=== PATIENT | male | born 1980 | race Caucasian/White ===

== ENCOUNTER 2018-11-11 10:43 | Observation (INO) | payer OTHER ==
[2018-11-11] MEDS ORDERED: LIDOCAINE 2% W/EPI 1:200,000 MPF 20 ML VIAL IM ONE (12:29)
[2018-11-11] MEDS ORDERED: LIDOCAINE 1% MPF 5 ML VIAL ONE (12:29)
[2018-11-11] MEDS ORDERED: CLINDAMYCIN 600MG/D5W 600 MG/50 ML BAG IV ONE (12:50)
--- NOTE | 2018-11-11 12:52 | ER ---
Nurse's Notes [facility] Name: Robson Smith Age: 38 yrs Sex: Male : 1980 Arrival Date: 11/11/2018 Time: 10:45 Bed 16 Private MD: Deion Monge Diagnosis: Cutaneous abscess of abdominal wall;Cellulitis of abdominal wall Presentation: 11/11 10:59 Presenting complaint: Patient states: "I went to urgent care and they diagnosed me with aa5 an abscess of my abdomen and gave me Bactrim on Sunday". Pt reports fever. Transition of care: patient was not received from another setting of care. Onset of symptoms was October 2018. Risk Assessment: Do you want to hurt yourself or someone else? Patient reports no desire to harm self or others. Care prior to arrival: None. 10:59 Method Of Arrival: Ambulatory aa5 10:59 Acuity: MONA 3 aa5 11:45 Initial Sepsis Screen: Does the patient meet any 2 criteria? No. Patient's initial rb1 sepsis screen is negative. Does the patient have a suspected source of infection? Yes:. Historical: - Allergies: 11:01 Levaquin; aa5 - Home Meds: 11:35 Bactrim DS Oral [Active]; rb1 - PMHx: 11:35 Autoimmune disorder; rb1 - PSHx: 11:01 Cyst removed; Cholecystectomy; aa5 11:01 Prostate sx; aa5 - Immunization history:: Flu vaccine is not up to date. - Social history:: Smoking status: Patient/guardian denies using tobacco. - Ebola Screening: : No symptoms or risks identified at this time. Screenin:35 Abuse screen: Denies threats or abuse. Nutritional screening: No deficits noted. rb1 Tuberculosis screening: No symptoms or risk factors identified. Fall Risk None identified. Assessment: 11:35 General: Appears in no apparent distress. comfortable, Behavior is calm, cooperative, rb1 Reports fever for. Pain: Complains of pain in suprapubic area Pain currently is 3 out of 10 on a pain scale. Pain began . Neuro: Level of Consciousness is awake, alert, obeys commands, Oriented to person, place, time, situation. Cardiovascular: Capillary refill < 3 seconds is brisk in bilateral fingers. Respiratory: Airway is patent Respiratory effort is even, unlabored, Respiratory pattern is regular, symmetrical. GI: No signs and/or symptoms were reported involving the gastrointestinal system. : No signs and/or symptoms were reported regarding the genitourinary system. Derm: Skin is red, purple. Musculoskeletal: Swelling present in suprapubic area. 12:35 Reassessment: Patient appears in no apparent distress at this time. Patient and/or rb1 family updated on plan of care and expected duration. Pain level reassessed. Patient is alert, oriented x 3, equal unlabored respirations, skin warm/dry/pink. 13:30 Reassessment: Patient appears in no apparent distress at this time. No changes from ss previously documented assessment. at bedside. 14:30 Reassessment: Patient appears in no apparent distress at this time. Patient and/or ss family updated on plan of care and expected duration. Pain level reassessed. Patient is alert, oriented x 3, equal unlabored respirations, skin warm/dry/pink. at bedside. Pt is watching TV. 15:05 Reassessment: Called to give report but was left on hold. rb1 15:30 Reassessment: Patient appears in no apparent distress at this time. Patient and/or rb1 family updated on plan of care and expected duration. Pain level reassessed. 16:00 Reassessment: Called to give report and was left on hold. rb1 16:05 Reassessment: Called to give report and was told by Gavin that the nurse was doing her rb1 admission on another pt. she just received, so she couldn't take report at this time. She would have Jackie call med back. 16:30 Reassessment: Patient appears in no apparent distress at this time. Patient and/or rb1 family updated on plan of care and expected duration. Pain level reassessed. Patient is alert, oriented x 3, equal unlabored respirations, skin warm/dry/pink. at bedside. 17:00 Reassessment: Patient appears in no apparent distress at this time. Patient and/or ss family updated on plan of care and expected duration. Pain level reassessed. Patient is alert, oriented x 3, equal unlabored respirations, skin warm/dry/pink. 17:00 Reassessment: Gave report to KATARZYNA Mejia. Information from the [facility] was given. All rb1 questions asked and answered. Vital Signs: 11:01 BP 135 / 90; Pulse 108; Resp 18 S; Temp 99.2(O); Pulse Ox 94% on R/A; Weight 95.25 kg aa5 (R); Height 5 ft. 11 in. (180.34 cm) (R); Pain 4/10; 14:49 BP 118 / 91; Pulse 103; Resp 17; Pulse Ox 97% on R/A; Pain 5/10; rb1 15:49 BP 129 / 88; Pulse 100; Resp 17; Pulse Ox 96% on R/A; rb1 17:00 BP 134 / 75; Pulse 104; Resp 17; Pulse Ox 95% ; Pain 8/10; ss 11:01 Body Mass Index 29.29 (95.25 kg, 180.34 cm) aa5 ED Course: 10:45 Patient arrived in ED. sb2 10:45 Deion Monge MD is Private Physician. sb2 10:59 Arm band placed on. aa5 11:00 Triage completed. aa5 11:25 Darrell Sloan PA is PHCP. jr8 11:25 Pasha Vivas MD is Attending Physician. jr8 11:35 Patient has correct armband on for positive identification. Placed in gown. Bed in low rb1 position. Call light in reach. Side rails up X 1. Pulse ox on. NIBP on. 11:44 Nasra Cline, RACHELE is Primary Nurse. rb1 12:50 Juliette Randhawa MD is Hospitalizing Provider. jr8 12:50 Inserted saline lock: 22 gauge in right antecubital area, using aseptic technique. rb1 Blood collected. 13:43 First set of blood cultures drawn by me, by venipuncture 23G to left hand. dh3 14:06 Second set of blood cultures drawn by me, by venipuncture 23G to right hand. dh3 17:13 No provider procedures requiring assistance completed. Patient admitted, IV remains in rb1 place. Administered Medications: 14:10 Drug: Clindamycin 600 mg Route: IVPB; Infused Over: 30 mins; Site: right antecubital; rb1 14:55 Follow up: IV Status: Completed infusion rb1 14:30 Drug: fentaNYL (PF) 50 mcg Route: IVP; Site: right antecubital; rb1 14:45 Follow up: Response: No adverse reaction; Pain is decreased rb1 14:30 Drug: Zofran 4 mg Route: IVP; Site: right antecubital; rb1 14:45 Follow up: Response: No adverse reaction; Nausea is decreased rb1 14:30 Drug: NS 0.9% 1000 ml Route: IV; Rate: 1000 ml; Site: right antecubital; rb1 15:40 Follow up: IV Status: Completed infusion rb1 15:40 Drug: vancoMYCIN 1 grams Route: IVPB; Infused Over: 2 hrs; Site: right antecubital; rb1 17:00 Drug: fentaNYL (PF) 50 mcg Route: IVP; Site: right antecubital; ss 17:13 Follow up: Response: No adverse reaction; Pain is decreased rb1 Outcome: 12:52 Decision to Hospitalize by Provider. jr8 17:13 Patient left the ED. 17:13 Admitted to Tele accompanied by tech, family with patient, via wheelchair, room 424, rb1 with chart, Report called to KATARZYNA Mejia 17:13 Condition: stable 17:13 Instructed on the need for admit. Signatures: Yeni Farnsworth RN RN aa5 Silvina Madden RN RN Darrell Sloan PA PA jr8 Nasra Cline, RN RN rb1 Krissy Valentine 3 Mallory Puentes sb2 Corrections: (The following items were deleted from the chart) 12:04 11:01 PMHx: None; aa5 rb1
--- NOTE | 2018-11-11 12:53 | EDPHYS ---
Physician Documentation [facility] Name: Robson Smith Age: 38 yrs Sex: Male : 1980 Arrival Date: 11/11/2018 Time: 10:45 Bed 16 Private MD: Deion Monge ED Physician Pasha Vivas HPI: 11/11 12:46 This 38 yrs old Male presents to ER via Ambulatory with complaints of Abscess.jr8 12:46 The patient presents with an abscess of the pelvis. Description: The affected area is jr8 moderate sized, well demarcated, erythematous, raised, streaking, swollen, tense, warm. Onset: The symptoms/episode began/occurred gradually, 4 day(s) ago. Possible cause(s): unknown. Associated signs and symptoms: Pertinent positives: fever. Modifying factors: the symptoms are alleviated by nothing, the symptoms are aggravated by pressure, sitting, squeezing the lesion and expressing the contents, touching. Severity of symptoms: At their worst the symptoms were moderate, in the emergency department the symptoms are unchanged. The patient has not experienced similar symptoms in the past. The patient has not recently seen a physician. Historical: - Allergies: 11:01 Levaquin; aa5 - Home Meds: 11:35 Bactrim DS Oral [Active]; rb1 - PMHx: 11:35 Autoimmune disorder; rb1 - PSHx: 11:01 Cyst removed; Cholecystectomy; aa5 11:01 Prostate sx; aa5 - Immunization history:: Flu vaccine is not up to date. - Social history:: Smoking status: Patient/guardian denies using tobacco. - Ebola Screening: : No symptoms or risks identified at this time. ROS: 12:46 Eyes: Negative for injury, pain, redness, and discharge, ENT: Negative for injury, jr8 pain, and discharge, Neck: Negative for injury, pain, and swelling, Cardiovascular: Negative for chest pain, palpitations, and edema, Respiratory: Negative for shortness of breath, cough, wheezing, and pleuritic chest pain, Abdomen/GI: Negative for abdominal pain, nausea, vomiting, diarrhea, and constipation, Back: Negative for injury and pain, MS/Extremity: Negative for injury and deformity, Neuro: Negative for headache, weakness, numbness, tingling, and seizure. 12:46 Skin: Positive for abscess. Exam: 12:46 Eyes: Pupils equal round and reactive to light, extra-ocular motions intact. Lids and jr8 lashes normal. Conjunctiva and sclera are non-icteric and not injected. Cornea within normal limits. Periorbital areas with no swelling, redness, or edema. ENT: Nares patent. No nasal discharge, no septal abnormalities noted. Tympanic membranes are normal and external auditory canals are clear. Oropharynx with no redness, swelling, or masses, exudates, or evidence of obstruction, uvula midline. Mucous membranes moist. Neck: Trachea midline, no thyromegaly or masses palpated, and no cervical lymphadenopathy. Supple, full range of motion without nuchal rigidity, or vertebral point tenderness. No Meningismus. Cardiovascular: Regular rate and rhythm with a normal S1 and S2. No gallops, murmurs, or rubs. Normal PMI, no JVD. No pulse deficits. Respiratory: Lungs have equal breath sounds bilaterally, clear to auscultation and percussion. No rales, rhonchi or wheezes noted. No increased work of breathing, no retractions or nasal flaring. Abdomen/GI: Soft, non-tender, with normal bowel sounds. No distension or tympany. No guarding or rebound. No evidence of tenderness throughout. Back: No spinal tenderness. No costovertebral tenderness. Full range of motion. MS/ Extremity: Pulses equal, no cyanosis. Neurovascular intact. Full, normal range of motion. Neuro: Awake and alert, GCS 15, oriented to person, place, time, and situation. Cranial nerves II-XII grossly intact. Motor strength 5/5 in all extremities. Sensory grossly intact. Cerebellar exam normal. Normal gait. 12:46 Skin: abscess, that is moderate sized, approximately 5 cm(s), of the suprapubic area, with induration, with surrounding cellulitis, that is moderate. Vital Signs: 11:01 BP 135 / 90; Pulse 108; Resp 18 S; Temp 99.2(O); Pulse Ox 94% on R/A; Weight 95.25 kg aa5 (R); Height 5 ft. 11 in. (180.34 cm) (R); Pain 4/10; 14:49 BP 118 / 91; Pulse 103; Resp 17; Pulse Ox 97% on R/A; Pain 5/10; rb1 15:49 BP 129 / 88; Pulse 100; Resp 17; Pulse Ox 96% on R/A; rb1 17:00 BP 134 / 75; Pulse 104; Resp 17; Pulse Ox 95% ; Pain 8/10; ss 11:01 Body Mass Index 29.29 (95.25 kg, 180.34 cm) aa5 Procedures: 12:46 I \T\ D: Incision and drainage was performed for an abscess of the suprapubic area jr8 Prepped with Betadine, Anesthetized with ml's 2% Lidocaine with epinephrine. 5 ml's 2% Lidocaine with epinephrine. Incised with #11 blade. Drained moderate amount purulent fluid. bloody fluid. Loculations removed. Cultures obtained. Abscess cavity explored. Packed with iodoform gauze, Dressing: sterile 4x4 gauze, the patient tolerated the procedure well. MDM: 11:25 Patient medically screened. [facility] 12:46 Data reviewed: vital signs, nurses notes, lab test result(s), and as a result, I will [facility] admit patient. Data interpreted: Pulse oximetry: on room air is 95 %. Interpretation: normal. Counseling: I had a detailed discussion with the patient and/or guardian regarding: the historical points, exam findings, and any diagnostic results supporting the discharge/admit diagnosis, lab results, the need for further work-up and treatment in the hospital. 11/11 12:07 Order name: CBC with Diff; Complete Time: 13:24 [facility] 11/11 12:07 Order name: Basic Metabolic Panel; Complete Time: 13:50 [facility] 11/11 12:52 Order name: Blood Culture Adult (2) [facility] 11/11 12:53 Order name: Wound Culture [facility] 11/11 12:07 Order name: IV; Complete Time: 13:47 [facility] 11/11 12:55 Order name: CONS Physician Consult EDMS Administered Medications: 14:10 Drug: Clindamycin 600 mg Route: IVPB; Infused Over: 30 mins; Site: right antecubital; rb1 14:55 Follow up: IV Status: Completed infusion rb1 14:30 Drug: fentaNYL (PF) 50 mcg Route: IVP; Site: right antecubital; rb1 14:45 Follow up: Response: No adverse reaction; Pain is decreased rb1 14:30 Drug: Zofran 4 mg Route: IVP; Site: right antecubital; rb1 14:45 Follow up: Response: No adverse reaction; Nausea is decreased rb1 14:30 Drug: NS 0.9% 1000 ml Route: IV; Rate: 1000 ml; Site: right antecubital; rb1 15:40 Follow up: IV Status: Completed infusion rb1 15:40 Drug: vancoMYCIN 1 grams Route: IVPB; Infused Over: 2 hrs; Site: right antecubital; rb1 17:00 Drug: fentaNYL (PF) 50 mcg Route: IVP; Site: right antecubital; ss 17:13 Follow up: Response: No adverse reaction; Pain is decreased rb1 Disposition: 11/11/18 12:52 Hospitalization ordered by Juliette Randhawa for Inpatient Admission. Preliminary diagnosis are Cutaneous abscess of abdominal wall, Cellulitis of abdominal wall. - Bed requested for Telemetry/MedSurg (Inpatient). - Status is Inpatient Admission. ss - Condition is Stable. - Problem is new. - Symptoms have improved. UTI on Admission? No Addendum: 11/19/2018 11:25 Co-signature as Attending Physician, Pasha Vivas MD I agree with the assessment and c boudreaux plan of care. Signatures: Dispatcher [employer] [facility] Mary Robledo RN Pasha Agudelo MD MD cha Calderon, Audri, RN RN aa5 Silvina Madden RN RN Darrell Sloan PA PA jr8 Nasra Cline, RN RN rb1 Corrections: (The following items were deleted from the chart) 11/11 12:04 11:01 PMHx: None; aa5 rb1 13:32 12:52 Hospitalization Ordered by Juliette Randhawa MD for Inpatient Admission. Preliminary diagnosis is Cutaneous abscess of abdominal wall; Cellulitis of abdominal wall. Bed requested for Telemetry/MedSurg (Inpatient). Status is Inpatient Admission. Condition is Stable. Problem is new. Symptoms have improved. UTI on Admission? No. jr8 17:13 13:32 11/11/2018 12:52 Hospitalization Ordered by Juliette Randhawa MD for Inpatient ss Admission. Preliminary diagnosis is Cutaneous abscess of abdominal wall; Cellulitis of abdominal wall. Bed requested for Telemetry/MedSurg (Inpatient). Status is Inpatient Admission. Condition is Stable. Problem is new. Symptoms have improved. UTI on Admission? No. dw
[2018-11-11 13:06] LABS: Absolute Monocytes 0.8 K/uL (0.1-1.3); Absolute Neutrophil 8.2 K/uL (1.8-8.0); Basophils % 0.8 % (0-1.3); Eosinophils % 1.6 % (0-4.4); Hematocrit 40.3 % (39.6-49.0); Lymphocytes % 17.6 % (15.3-44.8); MPV 7.5 fL (7.6-11.3); Monocytes % 7.3 % (3.3-12.3); RBC Red Blood Cell Count 4.37 M/uL (4.33-5.43)
[2018-11-11 13:28] LABS: Potassium 3.5 mmol/L (3.5-5.1)
[2018-11-11] MEDS ORDERED: NA CHLORIDE 0.9% 1,000 ML ONE (14:37)
[2018-11-11] MEDS ORDERED: FENTANYL CITR 100 MCG/2 ML ONE ×2 (14:37→17:00)
[2018-11-11] MEDS ORDERED: ONDANSETRON 4 MG/2 ML VIAL ONE (14:37)
[2018-11-11] MEDS ORDERED: VANCOMYCIN 1.75 GM in NA CHLORIDE 0.9% 500 ML IVPB ONE (16:00)
--- NOTE | 2018-11-11 16:50 | P.HP ---
Certification for Inpatient Patient admitted to: Observation With expected LOS: <2 Midnights Patient will require the following post-hospital care: None Practitioner: I am a practitioner with admitting privileges, knowledge of patient current condition, hospital course, and medical plan of care. Services: Services provided to patient in accordance with Admission requirements found in Title 42 Section 412.3 of the Code of Federal Regulations Patient History Date of Service: 11/11/18 Reason for admission: Abdominal abscess History of Present Illness: This is a 38-year-old male with no significant past medical history who presented to the ED complaining of having an abdominal pimple that got progressively worse for past 1 week. Patient noted that he had an abdominal pimple that grew about last Sunday or and has gotten progressively worse to the point he was hurting him a lot and thus he decided to come to the ER. Patient stated that 2 days ago he went to the urgent care and was given Bactrim which did not help resolve the issue and thus he came back to the ER today to get a further checked out. Patient also stated that only has been on dapsone for his gum disease and recently finish prednisone for that as well. Patient has no past medical history and has no other complaints to offer at this time. Patient states that no other similar symptoms as happened in the past. In the ER patient had an I and D and was admitted due to the extensive nature of the wound Allergies levofloxacin [From Levaquin] Allergy (Verified 11/11/18 17:42) Shortness of breath Review of Systems 10-point ROS is otherwise unremarkable Physical Examination - Physical Exam General: Alert, In no apparent distress HEENT: Atraumatic, PERRLA, Mucous membr. moist/pink, EOMI, Sclerae nonicteric Neck: Supple, 2+ carotid pulse no bruit, No LAD, Without JVD or thyroid abnormality Respiratory: Clear to auscultation bilaterally, Normal air movement Cardiovascular: Regular rate/rhythm, Normal S1 S2 Gastrointestinal: Normal bowel sounds, Tenderness Musculoskeletal: No tenderness Integumentary: Skin breakdown, Tenderness/swelling, Erythema, Warmth Neurological: Normal speech, Normal tone Lymphatics: No axilla or inguinal lymphadenopathy Assessment and Plan - Problems (Diagnosis) (1) Abdominal abscess Current Visit: Yes Status: Acute Plan: Abdominal Abscess. possibly extension up his oral dermatitis herpetiform -started on IV clindamycin at this time -status post I and D in the ER -general surgery consulted. Awaiting recommendations (2) Dermatitis herpetiformis Current Visit: Yes Status: Acute Plan: Patient with oral dermatitis herpetiform -currently on dapsone -will need to continue that here in the hospital - Plan Patient admitted to the hospital for abdominal abscess for IV antibiotics and general surgery consulted. Discharge Plan: Home Plan to discharge in: 48 Hours - Advance Directives Does patient have a Living Will: No Does patient have a Durable POA for Healthcare: No - Code Status/Comfort Care Code Status Assessed: Yes Critical Care: No
[2018-11-11 17:27] VITALS: BMI 29.2
[2018-11-11] MEDS ORDERED: ONDANSETRON 4 MG/2 ML VIAL IV PRN (17:43)
[2018-11-11] MEDS: CLINDAMYCIN INJ 600 MG in NA CHLORIDE 0.9% 50 ML IV SCH (17:43)
[2018-11-11] MEDS: NA CHLORIDE 0.9% 1,000 ML IV SCH (18:20)
--- NOTE | 2018-11-11 19:19 | CON ---
Date of Consultation: 11/11/2018 Brief History Of Present Illness: The patient is a 38-year-old male, who presents to the e mergency room with an abscess of the suprapubic area/lower abdomen near the midline. The area had be en gotten significantly larger, well-demarcated, erythematous, raised, swollen, tense, warm for appro ximately 3 to 4 days. It got significantly worse and as such came to the emergency room. He was see n by one of the PAs in the emergency room, who performed incision and drainage of the area and packed it with half-inch iodoform packing. He feels significant improvement. [facility] Past Medical History: Significant for autoimmune disorder. Allergies: LEVAQUIN. Home Medications: Include Bactrim DS oral. Past Surgical History: Includes prostate surgery and a cholecystectomy as well as a cyst removal. Social History: He denies smoking, alcohol, recreational drug use. Review of Systems: A 10-point review of systems other than HPI, denies. Physical Examination: General: At the time of my examination, he is awake, alert, oriented. Psychiatric: Appropriate, conversive. HEENT: Normocephalic. Sclerae icteric. Mucous membranes moist. Oropharynx clear. Neck: Supple. No JVD. Chest: Normal expansion and excursion. Cardiovascular: Regular rate and rhythm. Pulmonary: Clear to auscultation bilaterally. Abdomen: Soft, nontender, and nondistended. Extremities: Focused examination of the abdominal skin however shows a large area of abscess in the suprapubic/lower abdomen area in the midline with an incision in the area and is packed with half-inc h iodoform packing. There is cellulitis and tenderness to the area with some slight tenseness to the buttocks. No obvious drainable fluid collection at this point. It appears to be adequately drained at this time, however, I will re-evaluate going forward. Laboratory Data: Reveals a white blood cell count of 11.3, hemoglobin is 13.8, hematocrit of 40.3, p latelet count is 249. His sodium 139, potassium 3.5, chloride 103, with carbon dioxide 28, BUN 12, c reatinine 1.19, glucose is 93. Assessment And Plan: This is a 38-year-old male who presents with signs and symptoms of a pubic absc ess, status post incision and drainage in the ER. 1.IV fluid hydration. 2.Antibiotic coverage. 3.Serial examinations. 4.I will follow along with you. THERESA/ROMAN Voice ID: [id number] Report ID: [id number]
[2018-11-11] MEDS: DAPSONE 75 MG PO SCH (20:32)
[2018-11-12] MEDS: ACETAMINOPHEN 500 MG TAB PO PRN ×2 (00:10→04:15)
[2018-11-12] MEDS: CLINDAMYCIN INJ 600 MG in NA CHLORIDE 0.9% 50 ML IV SCH ×4 (00:13→18:35)
[2018-11-12] MEDS: NA CHLORIDE 0.9% 1,000 ML IV SCH ×4 (04:16→23:11)
[2018-11-12 05:55] LABS: Absolute Lymphocytes (CBC) 1.7 K/uL (0.7-4.9); Absolute Monocytes 0.9 K/uL (0.1-1.3); Absolute Neutrophil 7.6 K/uL (1.8-8.0); Basophils % 0.4 % (0-1.3); Eosinophils % 1.3 % (0-4.4); Hematocrit 36.7 % (39.6-49.0); Lymphocytes % 16.1 % (15.3-44.8); MPV 7.7 fL (7.6-11.3); Monocytes % 8.8 % (3.3-12.3); RBC Red Blood Cell Count 3.97 M/uL (4.33-5.43)
[2018-11-12 06:15] LABS: Potassium 3.9 mmol/L (3.5-5.1)
[2018-11-12 06:16] LABS: Albumin 3.1 g/dL (3.4-5.0); Bilirubin Total 0.6 mg/dL (0.2-1.0); Protein, Total 6.5 g/dL (6.4-8.2)
[2018-11-12] MEDS ORDERED: MORPHINE 4 MG/ML SYR IV ONE (09:49)
[2018-11-12] MEDS ORDERED: INFLUENZA VACCINE (for 3y+) 0.5 ML DOSE IMVAC ONE (10:00)
--- NOTE | 2018-11-12 10:01 | P.PN ---
Subjective Date of Service: 11/12/18 Chief Complaint: Abdominal abscess Subjective: Improving (redness improved at surgical site) Physical Examination - Vital Signs Temperature: 97.2 F Blood Pressure: 114/78 Pulse: 93 Respirations: 18 Pulse Ox (%): 92 - Physical Exam General: Alert, In no apparent distress, Cooperative Integumentary: Other (wound dressings changed, improved, cellulitis improving) Assessment And Plan - Current Problems (Diagnosis) (1) Abdominal abscess Current Visit: Yes Status: Acute Plan: - continue daily dressing changes with irrigation, packing - follow up in clinic in 1-2 weeks
--- NOTE | 2018-11-12 15:03 | RAD REPORT ---
EXAM DESCRIPTION: CT - Abdomen Pelvis Wo Contrast - 11/12/2018 2:53 pm CLINICAL HISTORY: Abdominal pain COMPARISON: 2007 TECHNIQUE: Computed axial tomography of the abdomen and pelvis was obtained. IV and oral contrast we re not requested. All CT scans are performed using dose optimization technique as appropriate and may include automated exposure control or mA/KV adjustment according to patient size. FINDINGS: The evaluation of solid organs, vessels and bowel is limited secondary to the lack of con trast administration. Ill-defined increased density is present within the anterior subcutaneous fat left of midline of the lower pelvis. Small amount of air is noted. Patient has had a recent debridement. Fluid-filled absces s is not seen. An intra-abdominal abscess is not present The liver, spleen, pancreas, adrenals and kidneys appear grossly normal. The appendix is normal. There is no evidence of diverticulitis. Small umbilical hernia IMPRESSION: Ill-defined increased density is present within the anterior subcutaneous fat left of mi dline of the lower pelvis. Small amount of air is noted. Patient has had a recent debridement. Fluid- filled abscess is not seen
--- NOTE | 2018-11-12 15:16 | P.PN ---
Subjective Date of Service: 11/12/18 Chief Complaint: Abdominal abscess Subjective: Tolerating diet, Ambulating, Improving, Working w/ PT, Doing well Review of Systems 10-point ROS is otherwise unremarkable Physical Examination - Vital Signs Temperature: 97.6 F Blood Pressure: 126/70 Pulse: 96 Respirations: 18 Pulse Ox (%): 94 - Physical Exam General: Alert, In no apparent distress HEENT: Atraumatic, PERRLA, EOMI Neck: Supple, JVD not distended Respiratory: Clear to auscultation bilaterally, Normal air movement Cardiovascular: Regular rate/rhythm, Normal S1 S2 Gastrointestinal: Normal bowel sounds, No tenderness Musculoskeletal: No tenderness Integumentary: Skin lesion, Tenderness/swelling, Erythema, Warmth Neurological: Normal speech, Normal tone, Normal affect Lymphatics: No axilla or inguinal lymphadenopathy - Studies Microbiology Data (last 24 hrs): 11/11/18 12:40 Wound - Abdomen Gram Stain - Final Medications List Reviewed: Yes Assessment And Plan - Current Problems (Diagnosis) (1) Abdominal abscess Current Visit: Yes Status: Acute Plan: Abdominal Abscess. possibly extension up his oral dermatitis herpetiform -On IV clindamycin at this time -status post I and D in the ER -general surgery consulted. Recommendations appreciated at this time -abdominal CT consistent with recent I and D -wound culture positive for 4+ staph aureus -will await culture results at this time and continue on IV clindamycin for now (2) Dermatitis herpetiformis Current Visit: Yes Status: Acute Plan: Patient with oral dermatitis herpetiform -currently on dapsone -will need to continue that here in the hospital - Plan Pending clinical improvement. Will follow up with wound culture. Initially patient was going to be discharged home with oral antibiotics however given the wound culture of 4+ staph aureus and a recent history of dermatitis hip her deformed as it is advisable to wait until the culture sensitivity returns. Will switch antibiotics depending on what the sensitivities are. Anticipate discharge in next 24-48 hr. Discharge Plan: Home Plan to discharge in: 48 Hours - Code Status/Comfort Care Code Status Assessed: Yes Critical Care: No
[2018-11-12] MEDS: DAPSONE 75 MG PO SCH (20:51)
[2018-11-13] MEDS: CLINDAMYCIN INJ 600 MG in NA CHLORIDE 0.9% 50 ML IV SCH ×2 (00:20→09:44)
[2018-11-13 08:49] VITALS: TEMP 97.3
[2018-11-13] MEDS: NA CHLORIDE 0.9% 1,000 ML IV SCH (09:43)
--- NOTE | 2018-11-13 11:59 | P.DS ---
Admission Date: 11/11/18 Discharge Date: 11/13/18 Primary Care Provider: Dr. Monge(Covering for him) Disposition: ROUTINE DISCHARGE Discharge Condition: GOOD Reason for Admission: Abdominal abscess Consultations: Surgery-Dr. Hernandez Procedures: CT scan: COMPARISON: 2007 TECHNIQUE: Computed axial tomography of the abdomen and pelvis was obtained. IV and oral contrast were not requested. All CT scans are performed using dose optimization technique as appropriate and may include automated exposure control or mA/KV adjustment according to patient size. FINDINGS: The evaluation of solid organs, vessels and bowel is limited secondary to the lack of contrast administration. Ill-defined increased density is present within the anterior subcutaneous fat left of midline of the lower pelvis. Small amount of air is noted. Patient has had a recent debridement. Fluid-filled abscess is not seen. An intra-abdominal abscess is not present The liver, spleen, pancreas, adrenals and kidneys appear grossly normal. The appendix is normal. There is no evidence of diverticulitis. Small umbilical hernia IMPRESSION: Ill-defined increased density is present within the anterior subcutaneous fat left of midline of the lower pelvis. Small amount of air is noted. Patient has had a recent debridement. Fluid-filled abscess is not seen Medical problem list: Suprapubic abdominal abscess status post I/D, wound culture for MRSA Brief History of Present Illness: 38-year-old male presented emergency room with abscess to the suprapubic/lower abdominal region near the mid line. Patient seen and evaluated by the ER recently. I and D was done. The area got worse. Patient required IV antibiotic therapy. It got worse and required hospitalization. Hospital Course: Patient presented with suprapubic abdominal abscess with recent I and D. Patient required IV antibiotic therapy. Recent culture results were positive for methicillin-resistant Staph aureus. Patient seen and evaluated by surgery. No further debridement was required. Condition improved with IV antibiotic therapy. At discharge patient will continue with Bactrim DS 1 pill twice daily and doxycycline 100 mg twice daily for 10 days. Patient will continue with current wound care including cleaning area with normal saline and packing with iodoform gauze. Recommendation for the patient follow up with surgery in 1 week to monitor his progress. This was discussed with his PCP oval see him within the next week. Vital Signs/Physical Exam: Temp Pulse Resp BP Pulse Ox 97.3 F 92 H 18 129/75 94 11/13/18 08:00 11/13/18 08:00 11/13/18 08:00 11/13/18 08:00 11/13/18 08:00 General: Alert, In no apparent distress, Oriented x3, Cooperative HEENT: Atraumatic Neck: Supple Respiratory: Clear to auscultation bilaterally, Normal air movement Cardiovascular: Normal pulses, Regular rate/rhythm Gastrointestinal: Normal bowel sounds, Soft and benign, Non-distended Integumentary: Other (Wound to the abdomen improved. No erythema. No exudate. ) Neurological: Normal speech, Normal strength at 5/5 x4 extr, Normal tone, Normal affect Laboratory Data at Discharge: WBC 10.4 K/uL (4.3-10.9) 11/12/18 05:18 Hgb 12.6 g/dL (13.6-17.9) L 11/12/18 05:18 Hct 36.7 % (39.6-49.0) L 11/12/18 05:18 Plt Count 256 K/uL (152-406) 11/12/18 05:18 Sodium 139 mmol/L (136-145) 11/12/18 05:18 Potassium 3.9 mmol/L (3.5-5.1) 11/12/18 05:18 BUN 11 mg/dL (7-18) 11/12/18 05:18 Creatinine 1.12 mg/dL (0.55-1.3) 11/12/18 05:18 Glucose 93 mg/dL (74-106) 11/12/18 05:18 Total Bilirubin 0.6 mg/dL (0.2-1.0) 11/12/18 05:18 AST 18 U/L (15-37) 11/12/18 05:18 ALT 28 U/L (12-78) 11/12/18 05:18 Alkaline Phosphatase 58 U/L (45-117) 11/12/18 05:18 Home Medications: Cetirizine HCl [Zyrtec*] 5 mg PO BEDTIME 11/11/18 Dapsone 75 mg PO BEDTIME 11/11/18 Doxycycline Hyclate 100 mg PO BID #20 tablet 11/13/18 Mupirocin Oint [Bactroban 2% Ointment] 8 appl TOP DAILY #1 tube 11/13/18 Smz./Tmp. [Bactrim Ds 800 MG/160 MG] 1 tab PO BID #20 tab 11/13/18 New Medications: Doxycycline Hyclate 100 mg PO BID #20 tablet Mupirocin Oint [Bactroban 2% Ointment] 8 appl TOP DAILY #1 tube Smz./Tmp. [Bactrim Ds 800 MG/160 MG] 1 tab PO BID #20 tab Patient Discharge Instructions: 1. Patient will need to follow up with his PCP within 1 week to follow up this hospitalization. 2. Patient presented with suprapubic abdominal abscess with recent I and D. Patient required IV antibiotic therapy. Recent culture results were positive for methicillin- resistant Staph aureus. Patient seen and evaluated by surgery. No further debridement was required. Condition improved with IV antibiotic therapy. At discharge patient will continue with Bactrim DS 1 pill twice daily and doxycycline 100 mg twice daily for 10 days. Patient will also apply Bactroban ointment to the nares and umbilicus daily. Patient will continue with current wound care including cleaning area with normal saline and packing with iodoform gauze. Recommendation for the patient follow up with surgery in 1 week to monitor his progress. This was discussed with his PCP who will see him within the next week. Diet: Regular Activity: Ad cuauhtemoc Followup: Praneeth Hernandez MD [ACTIVE - CAN ADMIT] - 1 Week (call for appointment) Time spent managing pt's care (in minutes): 55
[2018-11-13 14:31] VITALS: BP 122/81
[2018-11-13 14:32] VITALS: O2SAT 94
== END 2018-11-13 13:38 | disposition home or self-care (01) ==
LOC: ER 10:43 → ERHOLD 12:52 → 4TH 17:08
PROVIDERS: ADMIT Family Medicine; ATTEND Family Medicine
PROC: 0H97XZZ Drainage of Abdomen Skin, External Approach (ICD-10-PCS; principal; 2018-11-11)
DX: L02.211 Cutaneous abscess of abdominal wall (principal); B95.62 Methicillin resistant Staphylococcus aureus infection as the cause of diseases classified elsewhere; L13.0 Dermatitis herpetiformis; Z23 Encounter for immunization
CPT/HCPCS: 36415; 74176; 80048; 80053; 85025; 87040; 87070; 87077; 87186; 87205; 96361; 96365; 96375; 99285; G0008; G0378; J2405; J3010; J7030; Q2035